=== PATIENT | female | born 1995 | race Caucasian/White ===

== ENCOUNTER 2017-05-17 23:02 | Emergency (ER) | payer SELFPAY ==
[~2017-05-17] VITALS: Ht 154.9 cm; Wt 61.7 kg
[2017-05-17 23:12] VITALS: BP_SYST 140
[2017-05-18] MEDS ORDERED: PROCHLORPERAZINE EDISYLATE 10 MG/2 ML VIAL IM ONE (00:45)
[2017-05-18] MEDS ORDERED: DIPHENHYDRAMINE INJ 50 MG/ML VIAL IM ONE (00:45)
[2017-05-18 02:38] VITALS: BP_SYST 132
== END 2017-05-18 02:38 | disposition home or self-care (01) ==
LOC: SED 23:02
DX: G44.209 Tension-type headache, unspecified, not intractable (principal)
CPT/HCPCS: 96372; 99284; J0780; J1200